=== PATIENT | female | born 1975 | race Caucasian/White ===

== ENCOUNTER 2018-03-29 16:58 | Emergency (ER) | payer MEDICAID ==
[~2018-03-29] VITALS: Ht 571.8 cm; Wt 99.5 kg
[2018-03-29 17:08] VITALS: BP 167/94
== END 2018-03-29 18:19 | disposition home or self-care (01) ==
LOC: ER 17:00
DX: M72.2 Plantar fascial fibromatosis (principal); Z91.040 Latex allergy status
CPT/HCPCS: 99281

== ENCOUNTER 2018-09-17 15:53 | Emergency (ER) | payer MEDICAID ==
[~2018-09-17] VITALS: Ht 165.1 cm; Wt 103.1 kg
[2018-09-17 15:56] VITALS: BP 181/118
[2018-09-17] MEDS ORDERED: HYDROcodone/acetaminophen 10/325mg tab PO STA (15:59)
== END 2018-09-17 16:49 | disposition home or self-care (01) ==
LOC: ER 15:53
DX: M79.601 Pain in right arm (principal); Z91.040 Latex allergy status
CPT/HCPCS: 73060; 73080; 99283